=== PATIENT | female | born 1980 | race Two or more races ===

== ENCOUNTER → 2017-11-16 | Outpatient (REF) | payer MEDICAID ==
[~2017-11-16] MED LIST: ACE3 PO; HYDR-3250 PO; IBU800 PO; MET2 PO; NO MEDS; PNV1TABL92 PO
== END ==
LOC: ZZSTITCHES 13:21
PROVIDERS: ATTEND Physician Assistant
DX: R10.13 Epigastric pain (principal)
CPT/HCPCS: 87338

== ENCOUNTER → 2018-07-12 | Outpatient (CLI) | payer MEDICAID ==
[~2018-07-12] MED LIST changes: +ACET-1966 PO; +BARIUM SULFATE 176 GM BTL PO ONE; +BARIUM SULFATE 340 GM POWD ONE; +BISM262T85 PO; +GING1POW MC; +LICO1POW MC; +PANT40SU3 PO; +RANI-366 PO
--- NOTE | 2018-07-12 13:26 | RADIOLOGY IMAGING REPORT ---
FACILITY: [facility] - [place] PATIENT NAME: Kina Mercedes : 1980 MR: [id number] V: [id number] EXAM DATE: ORDERING PHYSICIAN: IMMANUEL CURTIS TECHNOLOGIST: Location: [facility] Patient: Kina Mercedes : 1980 Visit/Account:[id number] Date of Sevice: 07/12/2018 GALLBLADDER HISTORY: Right upper quadrant pain COMPARISON: None. FINDINGS: Gallbladder: Extensive shadowing is seen extending from the gallbladder fossa likely related to a gal lbladder full of stones versus calcified gallbladder wall. Three gallbladder wall appears thickened at 4.5 mm. Is a negative Mathur sign by technologist notation Liver: Negative. Common duct: Normal, 2.3 mm diameter. Pancreas: Partially obscured by bowel, visualized aspects unremarkable. Right kidney: Right kidney appears unremarkable measuring 9.9 cm in length Upper abdominal aorta and IVC: Patent. Ascites: None visualized. IMPRESSION: Extensive shadowing is seen from the gallbladder fossa likely related to a gallbladder full stones ve rsus calcified gallbladder wall Report Dictated By: Kellen Stock MD at 07/12/2018 1:20 PM Report E-Signed By: Kellen Stock MD at 07/12/2018 1:23 PM WSN:[email or web address]
--- NOTE | 2018-07-12 14:29 | RADIOLOGY IMAGING REPORT ---
FACILITY: [facility] - [place] PATIENT NAME: Kina Mercedes : 1980 MR: [id number] V: [id number] EXAM DATE: ORDERING PHYSICIAN: IMMANUEL CURTIS TECHNOLOGIST: Location: [facility] Patient: Kina Mercedes : 1980 Visit/Account:[id number] Date of Sevice: 07/12/2018 Exam type: UPPER GI SERIES W/O AIR History: GERD, upper abdomen pain Comparison: None. Findings: A small amount of gastroesophageal reflux was observed. There is no evidence of esophageal narrowing or mucosal erosion. No abnormality of the stomach, duodenal bulb or duodenal C-loop was seen. The fluoroscopy dose area product was 545.37 micro-[place] per meter squared IMPRESSION: 1. Small amount of gastroesophageal reflux although no evidence of esophageal narrowing or mucosal e rosion Report Dictated By: Kellen Stock MD at 07/12/2018 2:23 PM Report E-Signed By: Kellen Stock MD at 07/12/2018 2:25 PM WSN:[email or web address]
== END ==
LOC: RAD 03:40
PROVIDERS: ATTEND Surgery
DX: K21.9 Gastro-esophageal reflux disease without esophagitis (principal); R10.11 Right upper quadrant pain; R10.13 Epigastric pain
CPT/HCPCS: 74240; 76705

== ENCOUNTER 2018-07-16 01:46 | Day surgery (SDC) | payer MEDICAID ==
[~2018-07-16] VITALS: Ht 165.1 cm; Wt 62.1 kg
[~2018-07-16 01:46] MED LIST changes: -BARIUM SULFATE 176 GM BTL PO ONE; -BARIUM SULFATE 340 GM POWD ONE
[2018-07-16] MEDS ORDERED: LIDOCAINE/SOD BICARB 8.4% SYR ID ONE (08:15)
[2018-07-16] MEDS ORDERED: NORMOSOL R SOLN(*) 1000 ML BAG 1,000 ML IV PRN (08:15)
[2018-07-16 08:27] VITALS: BP 114/91
[2018-07-16 10:04] VITALS: BP 104/66
[2018-07-16 10:15] VITALS: BP 128/81
--- NOTE | 2018-07-16 10:20 | Short(Outpt) Discharge Summary ---
Discharge Summary Reason for Hosp/Final Diag: (1) GERD (gastroesophageal reflux disease) Status: Chronic Hospital Course & Plan: EGD with biopsies completed without problems. (2) Upper abdominal pain Status: Chronic Departure Discharge to: Home, Self Care Discharge Instructions Home Meds Reported Medications Acetaminophen (TYLENOL) Unknown Strength Tablet, PO PRN, TAB 07/10/18 Bismuth Subsalicylate (PEPTO-BISMOL) Unknown Strength Tab.chew, PO PRN, TAB.CHEW 07/10/18 Licorice Root Extract (LICORICE ROOT) Unknown Strength Powder, MC 07/10/18 Taylor Root (TAYLOR ROOT) Unknown Strength Powder, MC 07/10/18 Pantoprazole Sodium (PROTONIX) Unknown Strength Granpkt.dr, PO QDAY, PACK 07/10/18 Ranitidine Hcl (ZANTAC) 150 Mg Tablet, 150 MG PO BID, TAB 07/10/18 Ibuprofen (Motrin) 800 Mg Tab, 800 MG PO Q8H, #30 MAY TAKE BY MOUTH 1 TAB EVERY 6-8 HOURS NEEDED FOR PAIN 03/02/13 Discontinued Reported Medications Acetaminophen/Hydrocodone (LORTAB 5/325 MG (OR EQUIV)) 1 Ea Tab, 1 - 2 EA PO Q4H, #30 MAY TAKE 1-2 TABS BY MOUTH EVERY 4 HOURS NEEDED FOR PAIN 03/02/13 Pnv Cmb#95/Ferrous Fumarate/Fa ( TABLET) 1 Each Tablet, 1 EACH PO 07/25/12 Follow up Referrals: General Surgery - 07/30/18 @ Surgery, General with IMMANUEL CURTIS MD You have a follow up appointment scheduled with Dr. Curtis on 07/30/18, at 10:00am. Diet: Regular Activity: As Tolerated Special Instructions: Your upper endoscopy was completed without any problems. I biopsied your stomach and duodenum. I will see you back in my office and will discuss the pathology results with you at that time. Your gallbladder has a lot of gallstones in it and so this is the likely cause of your symptoms so when I see you back in the office we can discuss surgery to remove your gallbladder. Problem Qualifiers (1) GERD (gastroesophageal reflux disease): Esophagitis presence: without esophagitis Qualified Codes: K21.9 - Gastro- esophageal reflux disease without esophagitis IMMANUEL CURTIS MD Jul 16, 2018 10:20
[2018-07-16 10:25] VITALS: BP 127/77
[2018-07-16 10:27] VITALS: BP 137/92
== END 2018-07-16 10:48 ==
LOC: OR 01:46
PROVIDERS: ATTEND Surgery
DX: R10.13 Epigastric pain (principal)
CPT/HCPCS: 36415; 81025; 83516; 87077; 88305

== ENCOUNTER 2018-08-15 00:51 | Day surgery (SDC) | payer MEDICAID ==
[~2018-08-15] VITALS: Ht 152.4 cm; Wt 62.1 kg
[2018-08-15] VITALS (7 sets, daily range): BP systolic 130–145; BP diastolic 79–93
[~2018-08-15 00:51] MED LIST changes: +NAPR220C12 PO
[2018-08-15] MEDS ORDERED: ROPIVACAINE 0.5% 20 ML VIAL ONE (06:22)
[2018-08-15] MEDS ORDERED: INDOCYANINE GREEN 25 MG VIAL IVP ONE ×2 (06:27→07:30)
[2018-08-15] MEDS ORDERED: ROCURONIUM BROM 10 MG/ML 10 ML ONE (06:38)
[2018-08-15] MEDS ORDERED: ONDANSETRON 4 MG/2 ML VIAL ONE (06:38)
[2018-08-15] MEDS ORDERED: DEXAMETHASONE SOD PHOS 10MG/ML ONE (06:38)
[2018-08-15] MEDS ORDERED: MIDAZOLAM 2 MG/2 ML VIAL ONE (06:39)
[2018-08-15] MEDS ORDERED: fentaNYL CITR 100 MCG/2 ML AMP ONE ×3 (06:39→08:37)
[2018-08-15 06:47] LABS: PLATELET COUNT, AUTOMATED 227 K/uL (150-450)
[2018-08-15] MEDS ORDERED: FAMOTIDINE 20 MG TAB PO ONE (07:30)
[2018-08-15] MEDS ORDERED: LIDOCAINE/SOD BICARB 8.4% SYR ID ONE (07:30)
[2018-08-15] MEDS ORDERED: ACETAMINOPHEN 500 MG TAB PO ONE (07:30)
[2018-08-15] MEDS ORDERED: MIDAZOLAM 2 MG/2 ML VIAL IVP PRN (07:30)
[2018-08-15] MEDS ORDERED: NORMOSOL R SOLN(*) 1000 ML BAG 1,000 ML IV PRN (07:30)
[2018-08-15] MEDS ORDERED: AMPICILLIN/SULBACT (*) 3 GM VL 3 GM in NS(*) 0.9% 100 ML BAG 100 ML IVPB ONE (07:30)
[2018-08-15] MEDS ORDERED: PREGABALIN 150 MG CAPSULE PO ONE (07:30)
[2018-08-15] MEDS ORDERED: SUGAMMADEX SOD 500 MG/5 ML SDV ONE ×2 (07:47→17:40)
[2018-08-15] MEDS ORDERED: DOCU-416 PO (08:30)
[2018-08-15] MEDS ORDERED: HYDR-385 PO (08:30)
--- NOTE | 2018-08-15 08:33 | Short(Outpt) Discharge Summary ---
Discharge Summary Reason for Hosp/Final Diag: (1) Cholelithiasis Status: Chronic Hospital Course & Plan: Robotic cholecystectomy completed without problems. (2) Upper abdominal pain Status: Chronic Departure Discharge to: Home, Self Care Discharge Instructions Home Meds Active Scripts Docusate Sodium (COLACE) 100 Mg Capsule, 1 CAP PO BID, #30 CAP 0 Refills TAKE WITH A FULL GLASS OF WATER Prov:IMMANUEL CURTIS MD 08/15/18 Hydrocodone Bit/Acetaminophen (HYDROCODON-ACETAMINOPHEN 5-325) 1 Each Tablet, 1- 2 TAB PO Q4H PRN for PAIN, #30 TAB 0 Refills Prov:IMMANUEL CURTIS MD 08/15/18 Reported Medications Naproxen Sodium (ALEVE) 220 Mg Capsule, 220 MG PO PRN, CAPSULE 08/08/18 Acetaminophen (TYLENOL) Unknown Strength Tablet, PO PRN, TAB 07/10/18 Bismuth Subsalicylate (PEPTO-BISMOL) Unknown Strength Tab.chew, PO PRN, TAB.CHEW 07/10/18 Discontinued Reported Medications Licorice Root Extract (LICORICE ROOT) Unknown Strength Powder, MC 07/10/18 Taylor Root (TAYLOR ROOT) Unknown Strength Powder, MC 07/10/18 Pantoprazole Sodium (PROTONIX) Unknown Strength Granpkt.dr, PO QDAY, PACK 07/10/18 Ranitidine Hcl (ZANTAC) 150 Mg Tablet, 150 MG PO BID, TAB 07/10/18 Ibuprofen (Motrin) 800 Mg Tab, 800 MG PO Q8H, #30 MAY TAKE BY MOUTH 1 TAB EVERY 6-8 HOURS NEEDED FOR PAIN 03/02/13 Follow up Referrals: General Surgery - 08/30/18 @ Surgery, General with IMMANUEL CURTIS MD You have a follow up appointment scheduled with Dr. Curtis on Thursday, August 30, 2018, at 10:00am. Diet: Regular Activity: As Tolerated Special Instructions: You may remove the white surgical dressings on Friday, August 17, 2018, then you can shower. After showering, leave the incisions open to air but leave the steristrips in place until they fall off on their own. Do not immerse the incisions for 2 weeks. Problem Qualifiers (1) Cholelithiasis: Cholelithiasis location: gallbladder Cholecystitis presence: with cholecystitis Cholecystitis acuity: chronic Biliary obstruction: without biliary obstruction Qualified Codes: K80.10 - Calculus of gallbladder with chronic cholecystitis without obstruction IMMANULE CURTIS MD Aug 15, 2018 08:33
--- NOTE | 2018-08-15 08:40 | Post Operative Progress Note ---
Post Operative Progress Note Date: Aug 15, 2018 Time: 08:34 Surgeon: Babatunde Dictation number: [id number] Anesthesia: GETA by Dr. Aguilera Pre-Op Diagnosis: Symptomatic Gallstones Post-Op Diagnosis: LUCIANO Findings: C/W dx Procedure(s): Robotic Cholecystectomy Specimen Removed:(May be N/A): GB and contents Complications: None Fluids: See anesthesia record Estimated Blood Loss: Minimal Date OP Note Dictated: Aug 15, 2018 Time OP Note Dictated: 08:35 IMMANUEL CURTIS MD Aug 15, 2018 08:40
[2018-08-15] MEDS ORDERED: APAP/HYDROCODONE 325/5 TAB PO ONE (09:40)
--- NOTE | 2018-08-15 17:32 | OPERATIVE REPORT 1 ---
EVENT DATE: August 15, 2018 SURGEON: Saad Fine MD ANESTHESIOLOGIST: Stephan Aguilera MD ANESTHESIA: General endotracheal anesthesia. PREOPERATIVE DIAGNOSIS Symptomatic gallstones. POSTOPERATIVE DIAGNOSIS Symptomatic gallstones. PROCEDURE PERFORMED Robotic cholecystectomy. COMPLICATIONS None. CONDITIONS Stable. BLOOD LOSS Minimal. INDICATIONS This is a 38-year-old female who presented to my office with upper abdominal pain that was worse after eating. An EGD was unremarkable. Right upper quadrant ultrasound revealed a gallbladder full of gallstones. DESCRIPTION OF PROCEDURE The patient was brought to the operating room, placed supine on the operating table. General endotracheal anesthesia was administered, and her abdomen was prepped and draped in a sterile fashion. Timeout was completed. I injected the infraumbilical skin with 0.5% ropivacaine plain, and then I made a curvilinear smiley face-type incision in the inferior umbilical rim. I dissected through the dermis and subcutaneous fat and then identified the midline fascia. I made a vertical incision in the midline fascia and grasped the fascial edges with Ketan clamps and retracted the abdominal wall towards the ceiling away from the underlying viscera. I then used my finger to bluntly enter the peritoneal cavity. I placed two interrupted 0 Vicryl sutures transversely through the vertical fascial defect and inserted a 12 mm robotic Suhail-type port through this wound and secured it in place with the sutures. I insufflated the abdomen to a pressure of 15 mmHg and then inserted the robotic camera into the patient's abdomen. Gross inspection of the abdominal cavity did not reveal any evidence of obvious pathology or interrelated injuries. I then placed an 8 mm robotic port in the right mid abdomen and two 8 mm robotic ports, one in the left mid abdomen and one in the left upper quadrant in the anterior axillary line in the subcostal space. All of these were placed under direct visualization. Next, the patient was placed in reverse Trendelenburg, planed towards her left, and moved the viscera from the right upper quadrant. The robot was brought in, docked, and targeted. I inserted the camera and instruments, and then once this was all set up, I scrubbed out and went to the console. I grasped the fundus of the gallbladder with a ProGrasp and retracted this towards the patient's right shoulder. There were some adhesions to the gallbladder, and so these were taken down using traction/countertraction and hook electrocautery. After these were all completely done, and the infundibulum was identified, this was grasped with a SONIC BLUE AEROSPACEe grasper and retraced towards the patient's right hip. I used the hook to divide the peritoneum over the infundibulum and up both the medial and lateral aspects of the gallbladder. I then stripped the peritoneum down over the cystic duct and then cleaned off the cystic duct and artery circumferentially, clipped the artery proximally and distally, divided it between clips, and then clipped the duct with three clips distally and one clip at the infundibulum/cystic duct junction, and divided it between clips. I then retracted the infundibulum up towards the anterior abdominal wall and divided the posterior attachments of the gallbladder with the hook electrocautery until the gallbladder was completely removed from the liver in a hemostatic fashion. It was placed in the surgical specimen retrieval bag and removed from the abdomen through the umbilical port site. I inspected the gallbladder fossa as well as the cystic duct and artery stumps, and there was no bleeding or bile leaks. This was a very clean and expeditious case. I then had the remaining robotic instruments removed, and the robot was undocked and moved out of the way. I desufflated the abdomen, removed all of the ports, and then placed a [id number]-[id number] of 0 Vicryl suture through the vertical fascial defect between the first two sutures and then tied all three of these down with good reapproximation of the fascial edges with no remaining fascial defect. The skin at each incision was closed with 4-0 Monocryl subcuticular suture. Skin was cleaned and dried, and Steri-Strips were applied, followed by sterile surgical dressings. The patient was then awakened, extubated in the operating room, and transported to the recovery room in stable condition having tolerated the procedure without any apparent problems. DORETHA
[2018-08-16] MEDS ORDERED: ONDA4TAB97 PO (09:36)
== END 2018-08-15 09:15 | disposition home or self-care (01) ==
LOC: OR 00:51
PROVIDERS: ATTEND Surgery
DX: K80.80 Other cholelithiasis without obstruction (principal)
CPT/HCPCS: 47562; 84703; 85025; 88304; J0295; J1100; J2250; J2405; J2795; J3010; J7050; S2900

== ENCOUNTER → 2019-06-09 | Outpatient (CLI) | payer MEDICAID ==
[~2019-06-09] MED LIST changes: +DOCU-416 PO; +HYDR-385 PO; +ONDA4TAB97 PO; -RANI-366 PO; +RANI-54 PO
[2019-06-09 14:43] LABS: PLATELET COUNT, AUTOMATED 290 K/uL (150-450)
--- NOTE | 2019-06-12 14:36 | RADIOLOGY IMAGING REPORT ---
FACILITY: [facility] PATIENT NAME: Kina Mercedes : 1980 MR: [id number] V: [id number] EXAM DATE: ORDERING PHYSICIAN: MINGO BEEBE TECHNOLOGIST: Location: [facility] [place] Patient: Kina Mercedes : 1980 Visit/Account:[id number] Date of Sevice: 06/12/2019 EXAMINATION: Ultrasound transabdominal OB > 14 weeks with anatomic evaluation HISTORY: Established gestational age COMPARISON: None. TECHNIQUE: Transabdominal imaging was performed for assessment of the fetus and maternal pelvic structures. T ransvaginal imaging was not performed. FINDINGS: Placenta: Posterior without previa. Uterus: Gravid, otherwise normal Cervix: Long and closed. Maternal Ovaries: Not visualized Maternal and other adnexa findings: Not visualized Intrauterine gestations: One. presentation: Variable heart rate: Normal and regular at 163 bpm Amniotic fluid index: 10.5 cm Largest amniotic fluid pocket: 4.1 cm Gestational Parameters: BPD: 2.36 cm 14 weeks/ there days, 22% HC: 8.51 cm 13 weeks/ six days, 6% AC: 6.95 cm 13 weeks/ four days, 30% FL: 1.06 cm 13 weeks/ two days, 7% Average ultrasound age (AUA): 13 weeks/five days, RONY December 09, 2019 Estimated gestational age by LMP: 14 weeks/two days, RONY December 13, 2019 Estimated weight (EFW): 75 grams +/- 11 grams EFW for LMP: Third percentile Anatomic Survey: Anatomic survey not performed IMPRESSION: Is a single viable fetus in variable presentation with an estimated gestational age by m easurements of 13 weeks and five days. The estimated gestational age by LMP is 14 weeks and two days . Estimated weight is 75 g which is equivalent to the 3rd percentile Report Dictated By: Kellen Stock MD at 06/12/2019 2:22 PM Report E-Signed By: Kellen Stock MD at 06/12/2019 2:27 PM WSN:[email or web address]
== END ==
LOC: LAB 07:56
PROVIDERS: ATTEND Obstetrics & Gynecology
DX: O09.522 Supervision of elderly multigravida, second trimester (principal)
CPT/HCPCS: 36415; 85025; 86592; 86703; 86762; 86850; 86900; 86901; 87088; 87340

== ENCOUNTER → 2019-06-12 | Outpatient (CLI) | payer MEDICAID | LOC: US 10:05 | PROVIDERS: ATTEND Obstetrics & Gynecology | DX: Z36.89 Encounter for other specified antenatal screening (principal) ==